=== PATIENT | female | born 1940 | race Caucasian/White ===

== ENCOUNTER 2019-06-17 10:26 | Emergency (ER) | payer OTHER ==
[~2019-06-17] VITALS: Ht 154.9 cm; Wt 52.2 kg
--- NOTE | ~2019-06-17 | EMS ---
[address] [address] EMS Patient Care Report Name: JESU LINARES JENNIFER Room #: DEP LUKASZ Marrero#: [id number] Admission: 06/17/19 Attend Phys: Discharge: 06/17/19 Date of : 40 Report #: [id number] THIS REPORT FOR: //name// Report Transmitted: 06/17/2019 12:56 EMS Care Summary [facility] MED-ACT Incident [id number] @ 06/17/2019 09:29 Incident Location [address] [place] [address] Patient JESU LINARES Female, 79 Years 1940 Patient Address [address] [place] [address] Patient History Other,Gastro-Esophageal Reflux Disease (GERD),Thyroid Disease, Patient Allergies Sulfa, Patient Medications Loratadine, Simvastatin, Hydrochlorothiazide (Hctz), Levothyroxine, Gabapentin, Omeprazole, Chief Complaint unable to flex hand Disposition Transported No Lights/[place] [facility] Reason Sick Person Transported To [facility] Narrative [id number] arrived to find pt. seated on her front steps, A & O x 3, OFD assessing. Pt. states that since she awoke today she has been unable to raise or flex her right hand. Pt. has normal sensation and a strong strategic partnership specialist in the hand, but no [facility] [address] [place] [address] EMS Patient Care Report Name: JESU LINARES Room #: DEP ER Phylicia.#: [id number] Admission: 06/17/19 Attend Phys: Discharge: 06/17/19 Date of : 40 Report #: [id number] control of her wrist. Pt. denies pain or trauma, cap refill is <2 sec and radial pulse is strong and regular. Pt. walks to cot and is transported without change to [facility] [place]. PCSS is performed and no abnormalities are noted. Pt. moves herself to bed in Room 2 upon arrival at [facility] ED and pt. care is transferred to ED staff. Initial Vitals @10:00P: 81,SpO2: 98, @10:15P: 76,SpO2: 100, @10:10P: 79,R: 14,Pain: 0/10,SpO2: 96, @10:05P: 74,Pain: 0/10,GCS: 15,SpO2: 95, @09:55P: 89,BP: 151/74,Pain: 0/10,GCS: 15,SpO2: 98, @09:43P: 0, @09:50P: 94,R: 14,BP: 152/74,Pain: 0/10,GCS: 15,SpO2: 92,Revised Trauma: 12, Assessments @09:40MENTAL:Person Oriented,Time Oriented,Place Oriented,Event Oriented,SKIN:HEENT:Head/Face: No Abnormalities,Neck/Airway: No Abnormalities,LUNG SOUNDS:ABDOMEN:PELVIS//GI:EXTREMITIES:Left Arm: Weakness,Left Arm: Other,Right Arm: Weakness,Left Leg: No Abnormalities,Right Leg: No Abnormalities,PULSE:NEURO:Weakness Right-Sided, Impression Injury of Forearm Timeline 09:29,Call Received 09:29,Psap Call 09:29,Dispatched 09:29,En Route 09:37,On Scene 09:38,At Patient 09:43,BP: / M,PULSE: 0,RR: R,SPO2: Ox,ETCO2: ,BG: ,PAIN: ,GCS: , 09:50,BP: 152/74 M,PULSE: 94,RR: 14 R,SPO2: 92 Ox,ETCO2: ,BG: ,PAIN: 0,GCS: 15, 09:51,Depart Scene 09:55,BP: 151/74 M,PULSE: 89,RR: R,SPO2: 98 Ox,ETCO2: ,BG: ,PAIN: 0,GCS: 15, 10:00,BP: / M,PULSE: 81,RR: R,SPO2: 98 Ox,ETCO2: ,BG: ,PAIN: ,GCS: , 10:05,BP: / M,PULSE: 74,RR: R,SPO2: 95 Ox,ETCO2: ,BG: ,PAIN: 0,GCS: 15, 10:10,BP: / M,PULSE: 79,RR: 14 R,SPO2: 96 Ox,ETCO2: ,BG: ,PAIN: 0,GCS: , 10:15,BP: / M,PULSE: 76,RR: R,SPO2: 100 Ox,ETCO2: ,BG: ,PAIN: ,GCS: , 10:19,At Destination 10:38,Call Closed Disclaimer [address] [address] EMS Patient Care Report Name: JESU LINARES JENNIFER Room #: DEP LUKASZ Marrero#: [id number] Admission: 06/17/19 Attend Phys: Discharge: 06/17/19 Date of : 40 Report #: [id number] v1.1 Copyright 2019 [employer] This EMS Care Summary contains data elements from the applicable legal record (which may be displayed differently). It is designed to provide pertinent information for the following purposes: continuity of care, clinical quality, and state data reporting. The complete legal record is available to ED staff and administrators of the receiving hospital in [employer] Patient Tracker. All data is provided "as is."
[2019-06-17] MEDS ORDERED: OMEPRAZOLE40 MG PO (10:38)
[2019-06-17] MEDS ORDERED: NEURONTIN 300300 M1 PO (10:39)
[2019-06-17] MEDS ORDERED: ZOLOFT50 MG PO (10:39)
[2019-06-17] MEDS ORDERED: SIMVASTATIN40 MG PO (10:39)
[2019-06-17] MEDS ORDERED: CLARITIN10 MG PO (10:39)
[2019-06-17] MEDS ORDERED: SYNTHROID25 MC1 PO (10:40)
[2019-06-17] MEDS ORDERED: ASPIRIN325 PO (10:40)
[2019-06-17] MEDS ORDERED: HYDROCHLOROTHIA25 M2 PO (10:40)
[2019-06-17] MEDS ORDERED: TRAMADOL 50 MG50 MG PO (10:41)
[2019-06-17] MEDS ORDERED: TUMS PO (10:41)
[2019-06-17] MEDS ORDERED: AMITRIPTYLINE H25 M3 PO (10:41)
[2019-06-17] MEDS ORDERED: MOBIC15 MG PO (10:41)
[2019-06-17 12:29] VITALS: BP 137/45
== END 2019-06-17 12:32 | disposition home or self-care (01) ==
LOC: ER 10:26
DX: G56.31 Lesion of radial nerve, right upper limb (principal); Z88.8 Allergy status to other drugs, medicaments and biological substances; Z88.2 Allergy status to sulfonamides

== ENCOUNTER → 2020-05-24 | Outpatient (CLI) | payer OTHER ==
[~2020-05-24] VITALS: Ht 154.9 cm; Wt 46.3 kg
[~2020-05-24] MED LIST: AMITRIPTYLINE H25 M3 PO; ASPIRIN325 PO; CLARITIN10 MG PO; HYDROCHLOROTHIA25 M2 PO; MOBIC15 MG PO; NEURONTIN 300300 M1 PO; OMEPRAZOLE40 MG PO; SIMVASTATIN40 MG PO; SYNTHROID25 MC1 PO; TRAMADOL 50 MG50 MG PO; TUMS PO; TYLENOL WITH CO1 TA1 PO; ZOLOFT50 MG PO
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
[2020-05-24 14:09] VITALS: BP 152/74
--- NOTE | 2020-05-24 14:51 | NUR ---
Pain Clinic Assessment: 1. History of Osteoarthritis: Not Applicable History of Rheumatoid Arthritis: Not Applicable 2. Height: 5 ft. 1 in. 154.9 cm. Weight: 102.0 lb. oz. 46.267 kg. Patient's BMI: 19.3 3. Vital Signs: BP: 152/74 Pulse: 73 Resp: 14 Temp: 02 Sat: 100 ECG Mon: 4. Pain Intensity: 8 5. Fall Risk: Dizziness: N Needs help standing or walking: N Fallen in the last 3 months: N Fall risk comments: 6. Patient on Blood Thinner: None 7. History of Hypertension: Y 8. Opioid Therapy greater than 6 weeks: N Opiate Contract Signed: 9. Risk Assessment Tool Provided: 10. Functional Assessment Tool: 11. Recreational Drug Use: Never Drug Type: Tobacco Use: Former Smoker Tobacco Type: Cigarettes Amount or Packs/day: How Many Years: Alcohol Use: Yes Frequency: Weekly Quant: 8
== END ==
LOC: PAIN 06:56
PROVIDERS: ATTEND Anesthesiology Pain Medicine
DX: N94.819 Vulvodynia, unspecified (principal); G58.8 Other specified mononeuropathies; Z79.899 Other long term (current) drug therapy

== ENCOUNTER → 2020-06-07 | Outpatient (CLI) | payer OTHER ==
[~2020-06-07] VITALS: Ht 154.9 cm; Wt 46.3 kg
--- NOTE | ~2020-06-07 | HPC ---
[facility] [place] [address] [place] [address] PAIN MANAGEMENT CONSULTATION Name: JESU LINARES Room #: REG RAMONAAlia Marrero#: [id number] Admission: 06/07/20 Attend Phys: Luis Castellon MD Discharge: Date of : 40 Report #: [id number] THIS REPORT FOR: cc: Xuan Benson DNP, Mary E. DNP Morgan, Richard L. MD ~ CC: Xuan Castellon DATE OF SERVICE: 06/07/2020 Followup visit for caudal epidural injection. The patient returns to pain clinic today for trial of caudal injection. At her last visit, we discussed her radiographic findings. In the sacral region, she has perineural cysts involving the S1 segment and exerts mass effect on the S1 nerve root. There is also complex perineural cyst with 3 adjacent perineural cysts adjacent to S2 segment, extending down to S3. These all cause some mass effect. It may also be affecting the nerve roots that passed through this region. We discussed the possibility that we might be able to provide some symptomatic relief with a simple caudal injection. She is anxious to proceed. There have been no significant changes since my initial consult. I discussed the procedure and reviewed it prior taken to recovery room for injection. IMPRESSION: Sacral radiculopathy, pudendal neuralgia. PROCEDURE: After informed consent, the patient was taken to fluoroscopic suite. She was placed prone. Skin was prepped with ChloraPrep. Skin was anesthetized over the sacral hiatus. A 25-gauge needle was advanced first attempt into the sacral hiatus. She is quite slender and within 1 inch we were within the canal. A loss of resistance was followed by 1 mL of Omnipaque to confirm excellent placement within the caudal canal. I then injected a total of 7 mL of 0.5% lidocaine mixed with 60 mg of triamcinolone. She tolerated the procedure well. At the time of dictation, she is in the recovery room. She has some degree of motor block as well as sensory block extending up to about L5. She is being observed carefully and will be discharged only when she is able to bear weight and there is no weakness with plantar or dorsiflexion. Followup visit planned in 1 month. Repeat injections depend on course upon response. By: [id number] Luis Castellon MD /nt
[2020-06-07 14:50] VITALS: BP 146/77
--- NOTE | 2020-06-07 14:54 | NUR ---
Pain Clinic Assessment: 1. History of Osteoarthritis: FINGERS History of Rheumatoid Arthritis: DENIES 2. Height: 5 ft. 1 in. 154.9 cm. Weight: 102.0 lb. oz. 46.267 kg. Patient's BMI: 19.3 3. Vital Signs: BP: 146/77 Pulse: 74 Resp: 14 Temp: 02 Sat: 100 ECG Mon: 4. Pain Intensity: 8 5. Fall Risk: Dizziness: N Needs help standing or walking: N Fallen in the last 3 months: N Fall risk comments: 6. Patient on Blood Thinner: None 7. History of Hypertension: Y 8. Opioid Therapy greater than 6 weeks: N Opiate Contract Signed: 9. Risk Assessment Tool Provided: 10. Functional Assessment Tool: 11. Recreational Drug Use: Never Drug Type: Tobacco Use: Former Smoker Tobacco Type: Amount or Packs/day: How Many Years: Alcohol Use: Yes Frequency: Daily Quant: WINE
== END | disposition home or self-care (01) ==
LOC: PAIN 06:55
PROVIDERS: ATTEND Anesthesiology Pain Medicine
DX: M54.18 Radiculopathy, sacral and sacrococcygeal region (principal); G89.29 Other chronic pain; Z98.890 Other specified postprocedural states; Z79.899 Other long term (current) drug therapy

== ENCOUNTER → 2020-07-09 | Outpatient (CLI) | payer OTHER ==
[~2020-07-09] VITALS: Ht 154.9 cm; Wt 48.8 kg
[~2020-07-09] MED LIST changes: -NEURONTIN 300300 M1 PO; +NEURONTIN800 MG PO; +ULTRAM 50MG TAB50 MG PO
--- NOTE | ~2020-07-09 | HPC ---
[facility] [address] [place] [address] PAIN MANAGEMENT CONSULTATION Name: JESU LINARES Room #: REG RAMONAAlia Marrero#: [id number] Admission: 07/09/20 Attend Phys: Luis Castellon MD Discharge: Date of : 40 Report #: [id number] THIS REPORT FOR: cc: Xuan Benson DNP, Mary E. DNP Morgan, Richard L. MD ~ CC: Xuan Castellon DATE OF SERVICE: 07/09/2020 Followup visit for pudendal neuralgia. The patient returns to pain clinic today and we had roughly 20-30 minute conversation regarding her chronic pain. She has pudendal pain and neuralgic like discomfort with hypersensitivity and allodynia of the vulva. Her most comfortable position is sitting. Her worst position interestingly is standing. She no longer wears underpants when she is walking because any light touch causes discomfort. She has been to multiple pain clinics as noted in my initial dictation and has had a number of injections and treatments as aggressive as spinal cord stimulation, which she describes as a horrible experience. She has continued to have pain that is relieved only with a combination of gabapentin and tramadol. She is 80 years old. She takes it carefully. She does not overuse it. She takes it on a schedule. It provides modest relief and she denies side effects. I see no reason why she should not take it. We have tried every other thing possible short of surgery for her Tarlov cysts. We had a long discussion about the Tarlov cysts and whether or not they are cause of her pain. It could be although, cannot be proven. I have had a patient with a similar sort of problem who had excision of her Tarlov cysts and her pain was actually worse following surgery. Other than that, I have ear nose throat surgeon to share with her regarding treatment of vulvodynia. 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 She continued to require medication despite surgery. We discussed a caudal injection that I provided, which was to provide some desensitization of the sacral nerve roots. She had few days of pain relief, but not dramatic and pain then returned. We decided that we will repeat it one more time before we give up on caudal epidural injections as a treatment option. Even if she gets some relief and it turns her pain down to a level that she can function, then I think it is worthwhile. I have also talked to her about the need to continue to live with chronic pain, [address] [place] [address] PAIN MANAGEMENT CONSULTATION Name: JESU LINARES JENNIFER Room #: REG CLAlia Marrero#: [id number] Admission: 07/09/20 Attend Phys: Luis Castellon MD Discharge: Date of : 40 Report #: [id number] even if we cannot make it go away. I think that we can use the medicine safely to try and decrease the intensity of pain and then she needs to get along with living. We talked about that at some length today. Multiple questions were asked and answered and we will proceed today with a caudal epidural injection. PQRS remains unchanged. She has very slight BMI of 19.3, blood pressure 146/77, heart rate 74, respirations 14, O2 sat 100, pain intensity an 8/10 with neuropathic features as described. She is not on an opioid agreement with our clinic, but I do believe that we should keep her on tramadol and I will prescribe it for monthly intervals and if Dr. Benson will then take that over at some point in time, if she is comfortable, then I think that that is a reasonable way to manage this pain. We have discussed carefully safeguarding medications and avoiding higher doses. 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 PROCEDURE: Caudal epidural injection under fluoroscopic guidance. She was taken to fluoroscopic suite, placed prone, skin prepped with ChloraPrep. Skin anesthetized over the sacral hiatus. A 25-gauge needle was used for the injection and advanced into the sacral hiatus. A 0.25 mL of Omnipaque injected and excellent epidurogram was achieved. It traced out the Tarlov cysts to exclamation point, you could see them with the x-ray. It was then followed by 4 mL of 0.125% lidocaine mixed with 80 mg of triamcinolone. She had very significant heaviness in her leg following her first injection, so I diluted the local anesthetic dramatically. She was watched in recovery room for a period of 45 minutes and discharged with no complications. Followup visit planned as needed. Prescriptions were provided electronically for her tramadol and I will see her back in a couple of months. By: [id number] Luis Castellon MD /nt
[2020-07-09 11:04] VITALS: BP 158/76
--- NOTE | 2020-07-09 11:19 | NUR ---
Pain Clinic Assessment: 1. History of Osteoarthritis: FINGERS History of Rheumatoid Arthritis: DENIES 2. Height: 5 ft. 1 in. 154.9 cm. Weight: 107.6 lb. oz. 48.807 kg. Patient's BMI: 20.3 3. Vital Signs: BP: 158/76 Pulse: 73 Resp: 14 Temp: 02 Sat: 100 ECG Mon: 4. Pain Intensity: 9 5. Fall Risk: Dizziness: N Needs help standing or walking: N Fallen in the last 3 months: N Fall risk comments: 6. Patient on Blood Thinner: None 7. History of Hypertension: Y 8. Opioid Therapy greater than 6 weeks: N Opiate Contract Signed: 9. Risk Assessment Tool Provided: LOW 10. Functional Assessment Tool: 50/70 11. Recreational Drug Use: Never Drug Type: Tobacco Use: Former Smoker Tobacco Type: Cigarettes Amount or Packs/day: How Many Years: 20 Alcohol Use: Yes Frequency: Daily Quant: 1 GLASS WINE
== END | disposition home or self-care (01) ==
LOC: PAIN 06:58
PROVIDERS: ATTEND Anesthesiology Pain Medicine
DX: M54.18 Radiculopathy, sacral and sacrococcygeal region (principal); N94.819 Vulvodynia, unspecified; Z98.890 Other specified postprocedural states; Z79.899 Other long term (current) drug therapy; G89.29 Other chronic pain; Z87.891 Personal history of nicotine dependence; Z88.2 Allergy status to sulfonamides

== ENCOUNTER → 2020-08-16 | Outpatient (CLI) | payer OTHER ==
[~2020-08-16] VITALS: Ht 154.9 cm; Wt 49.3 kg
[~2020-08-16] MED LIST changes: +NEURONTIN 400400 M1 PO; +TRAMADOL HCL E100 M1 PO; +TRAMADOL HCL E100 MG PO
--- NOTE | ~2020-08-16 | HPC ---
[facility] [email or web address] [place] [address] PAIN MANAGEMENT CONSULTATION Name: JESU LINARES JENNIFER Room #: REG AMANDA Marrero#: [id number] Admission: 08/16/20 Attend Phys: Luis Castellon MD Discharge: Date of : 40 Report #: [id number] CC: Xuan Castellon DATE OF SERVICE: 08/16/2020 Followup visit for chronic pain syndrome. Vulvodynia. The patient returns to pain clinic today in followup for a 25-minute discussion regarding her persistent hypersensitivity of the clitoris and labia. She has had two caudal injections. The first was unsuccessful. The second one actually did provide pain relief, but the duration of response was so short that I do not think it makes sense to repeat a third one. She only got about 3-4 days of improvement in the pain then returned almost directly back to baseline. This generally is a bad sign and our patients who respond most favorably to epidural injections or other injections tend to have sustained improvement that warrants their continued use. As her record reflects, she has seen many, many physicians and undergone many procedures with an attempt to ablate the pain, pudendal nerve blocks are not in my ____, but she has had that performed by another physician without success. Spinal cord stimulation trial at was a failure and she was actually angry that it was even recommended. We discussed the fact that some patients respond to unusual therapies and is fortunate that she did not want to implant. She is on gabapentin 400 mg 3 times a day and she takes tramadol sparingly. The tramadol does help and in conjunction with the gabapentin, she gets some short-term relief. Based upon that finding, I made recommendations. PQRS REVIEW: 1. Osteoarthritis, fingers only. 2. BMI 20.5, stable. 3. Blood pressure 143/72, heart rate 86, respirations 16, O2 sat 100%. 4. Pain intensity, 10/10. 5. No falls. 6. No blood thinners. 7. Hypertension, under treatment. 8. Medications reviewed and reconciled. 9. No opioid agreement signed through our clinic. 10. Opioid risk assessment tool is low. She is 80 years of age. Her only medication tramadol, which she has not misused or abused and takes only in small amounts. 11. Functional assessment score is 50/70 suggesting dramatic pain impacts on her day-to-day living. 12. She denies tobacco, drinks alcohol occasionally in social setting. Denies other recreational drugs. IMPRESSION: Vulvodynia. RECOMMENDATIONS: 1. Tramadol Extra Strength 100 mg once a day for baseline effect. 2. Tramadol 50 mg for breakthrough 1-2 tablets a day as needed. 3. Gabapentin 400 mg t.i.d. 4. Follow up in 1-2 months. May consider other medications. Low-dose methadone has been helpful for some of our patients with neuropathic pains. Some of the most challenging patient's we have including trigeminal neuralgia and complex regional pain syndrome. Patients have used methadone successfully, but she is 80 years of age and we would need to overcome concerns and fears of the medications started extremely slow, taper it cautiously and carefully and monitor it to assess its efficacy. At this time, I am not prepared to begin that therapy unless she fails other avenues with less complicated opioids. By: [id number] Luis Castellon MD /nt
[2020-08-16 14:03] VITALS: BP 143/72
--- NOTE | 2020-08-16 14:25 | NUR ---
Pain Clinic Assessment: 1. History of Osteoarthritis: FINGERS History of Rheumatoid Arthritis: DENIES 2. Height: 5 ft. 1 in. 154.9 cm. Weight: 108.6 lb. oz. 49.260 kg. Patient's BMI: 20.5 3. Vital Signs: BP: 143/72 Pulse: 86 Resp: 16 Temp: 02 Sat: 100 ECG Mon: 4. Pain Intensity: 10 5. Fall Risk: Dizziness: N Needs help standing or walking: N Fallen in the last 3 months: N Fall risk comments: 6. Patient on Blood Thinner: None 7. History of Hypertension: Y 8. Opioid Therapy greater than 6 weeks: N Opiate Contract Signed: 9. Risk Assessment Tool Provided: LOW 10. Functional Assessment Tool: 50/70 11. Recreational Drug Use: Never Drug Type: Tobacco Use: Former Smoker Tobacco Type: Amount or Packs/day: How Many Years: Alcohol Use: Yes Frequency: Quant:
== END ==
LOC: PAIN 06:57
PROVIDERS: ATTEND Anesthesiology Pain Medicine
DX: N94.819 Vulvodynia, unspecified (principal); G89.4 Chronic pain syndrome

== ENCOUNTER → 2020-09-17 | Outpatient (CLI) | payer OTHER ==
[~2020-09-17] VITALS: Ht 154.9 cm; Wt 50.3 kg
[~2020-09-17] MED LIST changes: +AMBIEN 5 MG TABL5 M1 PO
[2020-09-17 13:11] VITALS: BP 135/55
--- NOTE | 2020-09-17 13:35 | NUR ---
Pain Clinic Assessment: 1. History of Osteoarthritis: FINGERS History of Rheumatoid Arthritis: DENIES 2. Height: 5 ft. 1 in. 154.9 cm. Weight: 110.8 lb. oz. 50.258 kg. Patient's BMI: 20.9 3. Vital Signs: BP: 135/55 Pulse: 85 Resp: 16 Temp: 02 Sat: 100 ECG Mon: 4. Pain Intensity: 9 5. Fall Risk: Dizziness: N Needs help standing or walking: N Fallen in the last 3 months: N Fall risk comments: 6. Patient on Blood Thinner: None 7. History of Hypertension: Y 8. Opioid Therapy greater than 6 weeks: N Opiate Contract Signed: 9. Risk Assessment Tool Provided: MOD-5 10. Functional Assessment Tool: 11. Recreational Drug Use: Never Drug Type: Tobacco Use: Former Smoker Tobacco Type: Amount or Packs/day: How Many Years: Alcohol Use: Yes Frequency: Daily Quant: 1 wine
== END ==
LOC: PAIN 06:51
PROVIDERS: ATTEND Anesthesiology Pain Medicine
DX: Z76.0 Encounter for issue of repeat prescription (principal); N94.818 Other vulvodynia; G89.29 Other chronic pain; Z79.899 Other long term (current) drug therapy

== ENCOUNTER → 2020-09-25 | Outpatient (CLI) | payer OTHER | LOC: LAB 07:30 | PROVIDERS: ATTEND Nurse Practitioner | DX: Z20.828 Contact with and (suspected) exposure to other viral communicable diseases (principal) ==

== ENCOUNTER → 2020-12-31 | Outpatient (CLI) | payer OTHER ==
[~2020-12-31] VITALS: Ht 154.9 cm; Wt 53.4 kg
[2020-12-31 10:31] VITALS: BP 144/71
--- NOTE | 2020-12-31 10:38 | NUR ---
Pain Clinic Assessment: 1. History of Osteoarthritis: FINGERS History of Rheumatoid Arthritis: DENIES 2. Height: 5 ft. 1 in. 154.9 cm. Weight: 117.8 lb. oz. 53.434 kg. Patient's BMI: 22.3 3. Vital Signs: BP: 144/71 Pulse: 68 Resp: 16 Temp: 02 Sat: 99 ECG Mon: 4. Pain Intensity: 7 5. Fall Risk: Dizziness: N Needs help standing or walking: N Fallen in the last 3 months: N Fall risk comments: 6. Patient on Blood Thinner: None 7. History of Hypertension: Y 8. Opioid Therapy greater than 6 weeks: N Opiate Contract Signed: 9. Risk Assessment Tool Provided: MOD-5 10. Functional Assessment Tool: 11. Recreational Drug Use: Never Drug Type: Tobacco Use: Former Smoker Tobacco Type: Amount or Packs/day: How Many Years: Alcohol Use: Yes Frequency: Daily Quant: 1
== END ==
LOC: PAIN 06:50
PROVIDERS: ATTEND Anesthesiology Pain Medicine
DX: N94.819 Vulvodynia, unspecified (principal); Z87.891 Personal history of nicotine dependence; Z88.8 Allergy status to other drugs, medicaments and biological substances; Z79.899 Other long term (current) drug therapy

== ENCOUNTER → 2021-02-28 | Outpatient (CLI) | payer OTHER ==
[~2021-02-28] VITALS: Ht 154.9 cm; Wt 53.5 kg
[~2021-02-28] MED LIST changes: +AMITRIPTYLINE H10 M1 PO
[2021-02-28 14:06] VITALS: BP 126/72
--- NOTE | 2021-02-28 14:07 | NUR ---
Pain Clinic Assessment: 1. History of Osteoarthritis: FINGERS History of Rheumatoid Arthritis: DENIES 2. Height: 5 ft. 1 in. 154.9 cm. Weight: 118.0 lb. oz. 53.524 kg. Patient's BMI: 22.3 3. Vital Signs: BP: 126/72 Pulse: 90 Resp: 16 Temp: 02 Sat: 100 ECG Mon: 4. Pain Intensity: 7 5. Fall Risk: Dizziness: N Needs help standing or walking: N Fallen in the last 3 months: N Fall risk comments: 6. Patient on Blood Thinner: None 7. History of Hypertension: Y 8. Opioid Therapy greater than 6 weeks: N Opiate Contract Signed: 9. Risk Assessment Tool Provided: MOD-5 10. Functional Assessment Tool: 11. Recreational Drug Use: Never Drug Type: Tobacco Use: Former Smoker Tobacco Type: Amount or Packs/day: How Many Years: Alcohol Use: Yes Frequency: Daily Quant: 1
== END ==
LOC: PAIN 13:05
PROVIDERS: ATTEND Anesthesiology Pain Medicine
DX: M79.2 Neuralgia and neuritis, unspecified (principal); N94.819 Vulvodynia, unspecified; Z87.891 Personal history of nicotine dependence; Z79.899 Other long term (current) drug therapy; Z88.8 Allergy status to other drugs, medicaments and biological substances

== ENCOUNTER → 2021-05-27 | Outpatient (CLI) | payer OTHER ==
[~2021-05-27] VITALS: Ht 154.9 cm; Wt 54.2 kg
[2021-05-27 11:14] VITALS: BP 130/62
--- NOTE | 2021-05-27 11:36 | NUR ---
Pain Clinic Assessment: 1. History of Osteoarthritis: FINGERS History of Rheumatoid Arthritis: DENIES 2. Height: 5 ft. 1 in. 154.9 cm. Weight: 119.4 lb. oz. 54.159 kg. Patient's BMI: 22.6 3. Vital Signs: BP: 130/62 Pulse: 67 Resp: 14 Temp: 02 Sat: 98 ECG Mon: 4. Pain Intensity: 8 5. Fall Risk: Dizziness: N Needs help standing or walking: N Fallen in the last 3 months: N Fall risk comments: 6. Patient on Blood Thinner: None 7. History of Hypertension: Y 8. Opioid Therapy greater than 6 weeks: N Opiate Contract Signed: 9. Risk Assessment Tool Provided: MOD-5 10. Functional Assessment Tool: 11. Recreational Drug Use: Never Drug Type: Tobacco Use: Former Smoker Tobacco Type: Amount or Packs/day: How Many Years: Alcohol Use: Yes Frequency: Quant:
== END ==
LOC: PAIN 07:02
PROVIDERS: ATTEND Anesthesiology Pain Medicine
DX: G58.8 Other specified mononeuropathies (principal); Z79.899 Other long term (current) drug therapy; Z79.891 Long term (current) use of opiate analgesic

== ENCOUNTER → 2021-06-24 | Outpatient (CLI) | payer OTHER ==
[~2021-06-24] VITALS: Ht 157.5 cm; Wt 55.3 kg
[2021-06-24 10:46] VITALS: BP 142/69
--- NOTE | 2021-06-24 10:49 | NUR ---
Pain Clinic Assessment: 1. History of Osteoarthritis: FINGERS History of Rheumatoid Arthritis: DENIES 2. Height: 5 ft. 2 in. 157.5 cm. Weight: 122.0 lb. oz. 55.339 kg. Patient's BMI: 22.3 3. Vital Signs: BP: 142/69 Pulse: 74 Resp: 16 Temp: 02 Sat: 99 ECG Mon: 4. Pain Intensity: 8 5. Fall Risk: Dizziness: N Needs help standing or walking: N Fallen in the last 3 months: N Fall risk comments: 6. Patient on Blood Thinner: None 7. History of Hypertension: Y 8. Opioid Therapy greater than 6 weeks: N Opiate Contract Signed: 9. Risk Assessment Tool Provided: MOD-5 10. Functional Assessment Tool: 11. Recreational Drug Use: Never Drug Type: Tobacco Use: Former Smoker Tobacco Type: Amount or Packs/day: How Many Years: Alcohol Use: Yes Frequency: Daily Quant: 1-2
== END ==
LOC: PAIN 10:29
PROVIDERS: ATTEND Anesthesiology Pain Medicine
DX: M48.061 Spinal stenosis, lumbar region without neurogenic claudication (principal); I10 Essential (primary) hypertension; Z72.89 Other problems related to lifestyle; Z87.891 Personal history of nicotine dependence; Z79.899 Other long term (current) drug therapy; Z88.2 Allergy status to sulfonamides

== ENCOUNTER → 2021-07-15 | Outpatient (CLI) | payer OTHER ==
[~2021-07-15] VITALS: Ht 157.5 cm; Wt 55.2 kg
[2021-07-15 09:34] VITALS: BP 140/67
== END | disposition home or self-care (01) ==
LOC: PAIN 06:58
PROVIDERS: ATTEND Anesthesiology Pain Medicine
DX: M51.16 Intervertebral disc disorders with radiculopathy, lumbar region (principal); G89.29 Other chronic pain; I10 Essential (primary) hypertension; Z98.890 Other specified postprocedural states; Z79.899 Other long term (current) drug therapy; Z87.891 Personal history of nicotine dependence; Z88.2 Allergy status to sulfonamides; Z88.8 Allergy status to other drugs, medicaments and biological substances

== ENCOUNTER → 2021-08-22 | Outpatient (CLI) | payer OTHER ==
[~2021-08-22] VITALS: Ht 154.9 cm; Wt 53.5 kg
[~2021-08-22] MED LIST changes: +NEURONTIN 400M400 M2 PO
[2021-08-22 14:17] VITALS: BP 166/90
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
== END ==
LOC: PAIN 13:09
PROVIDERS: ATTEND Clinical Nurse Specialist Adult Health
DX: M54.16 Radiculopathy, lumbar region (principal); G89.29 Other chronic pain; Z79.82 Long term (current) use of aspirin; Z79.899 Other long term (current) drug therapy; Z88.8 Allergy status to other drugs, medicaments and biological substances